=== PATIENT | female | born 1950 ===

== ENCOUNTER 2022-07-18 08:56 | Outpatient (CLI) | payer OTHER | END 2022-07-18 09:05 | disposition home or self-care (01) | LOC: LAB 08:56 | PROVIDERS: ATTEND Orthopaedic Surgery | DX: D64.9 Anemia, unspecified (principal); D68.8 Other specified coagulation defects; N39.0 Urinary tract infection, site not specified; E88.9 Metabolic disorder, unspecified; Z76.89 Persons encountering health services in other specified circumstances; I10 Essential (primary) hypertension ==

== ENCOUNTER 2022-12-19 08:50 | Outpatient (CLI) | payer OTHER | END 2022-12-19 08:51 | disposition home or self-care (01) | LOC: LAB 08:50 | PROVIDERS: ATTEND Orthopaedic Surgery | DX: M85.9 Disorder of bone density and structure, unspecified (principal); E83.42 Hypomagnesemia; E56.1 Deficiency of vitamin K; E88.89 Other specified metabolic disorders; M81.8 Other osteoporosis without current pathological fracture ==